=== PATIENT | male | born 1960 | race African-American/Black ===

== ENCOUNTER 2024-10-01 17:27 | Emergency (ER) | payer SELFPAY ==
[~2024-10-01] VITALS: Ht 170.2 cm; Wt 112.0 kg
[2024-10-01 17:43] VITALS: BP 150/82; PULSE 88; RESP 16; TEMP 36.8; O2SAT 98
== END 2024-10-02 00:04 | disposition left against medical advice (07) ==
LOC: ER 17:27
DX: R11.2 Nausea with vomiting, unspecified (principal); I10 Essential (primary) hypertension; Z53.21 Procedure and treatment not carried out due to patient leaving prior to being seen by health care provider